=== PATIENT | male | born 1945 | race Caucasian/White ===

== ENCOUNTER → 2019-05-17 | Outpatient (CLI) | payer OTHER, BC ==
[~2019-05-17] MED LIST: ASPIR 8181 MG PO; B COMPLEX1 EAC1 PO; CHLOROPHYLL 3 MG3 MG PO; DAILY MULTIPLE1 EACH PO; FISH OIL 1,001000 M2 PO; HYDROCHLOROTHIA25 M2 PO; LISINOPRIL20 MG PO; OSTEO BI-FLEX1 EAC1 PO; PRADAXA150 MG PO; SIMVASTATIN20 MG PO; [UNRECOGNIZED DRUG - OTHER] TP
== END ==
LOC: SJCVC 11:23
DX: R94.31 Abnormal electrocardiogram [ECG] [EKG] (principal); I48.3 Typical atrial flutter; R55 Syncope and collapse; I10 Essential (primary) hypertension; E78.5 Hyperlipidemia, unspecified; G47.33 Obstructive sleep apnea (adult) (pediatric); Z79.01 Long term (current) use of anticoagulants

== ENCOUNTER → 2019-07-27 | Outpatient (CLI) | payer OTHER, BC | LOC: SJCVC 15:57 | PROVIDERS: ATTEND Internal Medicine | DX: R94.31 Abnormal electrocardiogram [ECG] [EKG] (principal); I48.3 Typical atrial flutter; R55 Syncope and collapse; I10 Essential (primary) hypertension; E78.5 Hyperlipidemia, unspecified; G47.33 Obstructive sleep apnea (adult) (pediatric); E66.9 Obesity, unspecified; Z79.899 Other long term (current) drug therapy; Z79.84 Long term (current) use of oral hypoglycemic drugs; Z79.01 Long term (current) use of anticoagulants ==

== ENCOUNTER → 2019-08-03 | Outpatient (CLI) | payer OTHER, BC ==
[2019-08-03 08:12] VITALS: BP 142/79
--- NOTE | 2019-08-05 20:14 | CATHLAB ---
[facility] [place] [address] INVASIVE PROCEDURE REPORT Name: TOO GODOY JR Room #: [facility]#: [id number] Admission: 08/03/19 Attend Phys: Gonsalo Cam MD, Discharge: Date of : 43 Report #: [id number] THIS REPORT FOR: cc: Too Osullivan MD,Too Cam,Gonsalo Levin MD [facility] ~ CC: Gonsalo Osullivan DATE OF SERVICE: 08/03/2019 PROCEDURE: Implantable loop recorder. INDICATION: Paroxysmal atrial flutter, near syncope. DESCRIPTION OF PROCEDURE: The potential benefits and risks of the procedure were discussed at length with the patient who understood. Full written and informed consent was obtained. The patient was brought into the cardiac holding area where his left anterior chest was prepped and draped in a sterile fashion. A 2% Xylocaine was used as local anesthetic. A 1 cm stab wound was placed with placement of a LINQ device. Thresholds and sensitivities were very poor with this placement. This device was subsequently removed and a new 1 cm stab incision was placed more medially at the fourth intercostal space. Sensitivities were acceptable. There was single bioabsorbable stitch was placed around dressing over this. The [employer] Reveal LINQ, serial #[id number]. He tolerated the procedure well and was discharged home. <ELECTRONICALLY SIGNED> By: Gonsalo Cam MD, FACC 08/05/192013 [id number] Gonsalo Cam MD, [facility] /nt
== END | disposition home or self-care (01) ==
LOC: CATH 07:16
PROVIDERS: ATTEND Internal Medicine
DX: I48.92 Unspecified atrial flutter (principal); R55 Syncope and collapse; Z98.890 Other specified postprocedural states; Z79.899 Other long term (current) drug therapy; Z79.82 Long term (current) use of aspirin; Z79.01 Long term (current) use of anticoagulants

== ENCOUNTER → 2019-10-11 | Outpatient (CLI) | payer OTHER, BC | LOC: SJCVC 13:19 | PROVIDERS: ATTEND Internal Medicine | DX: I48.3 Typical atrial flutter (principal); R55 Syncope and collapse; I10 Essential (primary) hypertension; E78.5 Hyperlipidemia, unspecified; G47.33 Obstructive sleep apnea (adult) (pediatric); Z79.01 Long term (current) use of anticoagulants; Z87.891 Personal history of nicotine dependence ==

== ENCOUNTER → 2020-10-24 | Outpatient (CLI) | payer OTHER, BC | LOC: SJCVCIMAG 08:39 | PROVIDERS: ATTEND Internal Medicine | DX: R94.31 Abnormal electrocardiogram [ECG] [EKG] (principal); I35.8 Other nonrheumatic aortic valve disorders; I48.3 Typical atrial flutter; I10 Essential (primary) hypertension; E78.5 Hyperlipidemia, unspecified; G47.33 Obstructive sleep apnea (adult) (pediatric); E83.110 Hereditary hemochromatosis; R55 Syncope and collapse; Z79.01 Long term (current) use of anticoagulants; L11.1 Transient acantholytic dermatosis [Grover]; E66.9 Obesity, unspecified; Z86.73 Personal history of transient ischemic attack (TIA), and cerebral infarction without residual deficits; Z87.891 Personal history of nicotine dependence; Z79.84 Long term (current) use of oral hypoglycemic drugs; Z79.899 Other long term (current) drug therapy ==